=== PATIENT | male | born 1980 | race Caucasian/White ===

== ENCOUNTER 2020-05-29 12:42 | Emergency (ER) | payer MEDICAID ==
[~2020-05-29] VITALS: Ht 185.4 cm; Wt 89.8 kg
--- NOTE | 2020-05-29 12:44 | NUR ---
PT [address] C/O SI "I WANT TO CUT MY THROAT" PT IS AAOX4, NOT IN RESPIRATORY DISTRESS, V/S STABLE, KEPT RESTED AND COMFORTABLE. WILL CONTINUE TO MONITOR. SITTER AT BEDSIDE.
--- NOTE | 2020-05-29 12:48 | NUR ---
URINE SPECIMEN COLLECTED AND SENT TO LAB.
--- NOTE | 2020-05-29 12:51 | NUR ---
called security for wanding
--- NOTE | 2020-05-29 12:52 | NUR ---
security at bedside and wand the paitent
[2020-05-29 13:10] LABS: APPEARANCE,URINE CLEAR (CLEAR); BILIRUBIN,URINE NEGATIVE (NEGATIVE); BLOOD, URINE NEGATIVE Ery/uL (NEGATIVE); COLOR,URINE YELLOW (YELLOW); KETONES,URINE NEGATIVE (NEGATIVE); LEUKOCYTE ESTERASE ,URINE NEGATIVE (NEGATIVE); NITRITE, URINE NEGATIVE (NEGATIVE); PROTEIN,URINE NEGATIVE (NEGATIVE); UGLUCOSE NEGATIVE (NEGATIVE); UROBILINOGEN,URINE 0.2 EU/dL (0.2)
[2020-05-29 13:26] LABS: EOSINOPHILS % (AUTO) 1.4 % (0.0-6.0); HEMATOCRIT 41 % (39-51); HEMOGLOBIN 13.8 g/dL (13.5-17.5); LYMPHOCYTES # (AUTO) 0.9 /CMM (0.8-4.8); LYMPHOCYTES % (AUTO) 23.7 % (20.0-44.0); MEAN CORPUSCULAR HGB CONC 34 g/dl (31.0-36.0); MEAN CORPUSCULAR VOLUME 88 fL (80-96); MONOCYTES # (AUTO) 0.4 /CMM (0.1-1.30); MONOCYTES % (AUTO) 10.8 % (2.0-12.0); NEUTROPHILS # (AUTO) 2.3 /CMM (1.8-8.9); NEUTROPHILS % (AUTO) 63.1 % (43.0-81.0); PLATELET COUNT (AUTO) 198 /CMM (150-450); RED BLOOD CELL COUNT(AUTO) 4.65 MIL/uL (4.5-6.0); WHITE BLOOD COUNT (AUTO) 3.7 K/uL (4.3-11.0)
[2020-05-29 13:58] LABS: ALANINE AMINOTRANSFERASE 45 U/L (12-78); ALBUMIN 3.6 g/dL (3.4-5.0); ALKALINE PHOSPHATASE 56 U/L (46-116); ASPARTATE AMINOTRANSFERASE 36 U/L (15-37); BILIRUBIN,DIRECT 0.2 mg/dL (0.0-0.2); BILIRUBIN,TOTAL 0.5 mg/dL (0.2-1.0); CARBON DIOXIDE 29 mmol/L (21-32); CHLORIDE 102 mmol/L (98-107); CREATININE 1.1 mg/dL (0.6-1.3); GLUCOSE 71 mg/dL (74-106); POTASSIUM 3.2 mmol/L (3.5-5.1); SODIUM SERUM 140 mmol/L (136-145); TOTAL PROTEIN, SERUM 6.5 g/dL (6.4-8.2); UREA NITROGEN, BLOOD 7 mg/dL (7-18)
--- NOTE | 2020-05-29 14:10 | NUR ---
PATIENT IN BED ASLEEP, EASILY AROUSABLE BY VOICE, HOOKED TO MONITOR, WILL CONTINUE TO MONITOR ACCORDINGLY, SITTER AT BEDSIDE FOR SAFETY
[2020-05-29 14:21] LABS: ACETAMINOPHEN 0 ug/ml (10-30); ALCOHOL, BLOOD < 3 mg/dL (0-0); SALICYLATE 1.4 mg/dL (2.8-20.0)
--- NOTE | 2020-05-29 15:52 | NUR ---
GIULIA FROM [facility] IS ACCEPTED MD'S ARE CHARLES CALL REPORT [phone]. HOUSE KELSIE ARMANDO.
--- NOTE | 2020-05-29 15:59 | NUR ---
CALLED FOR TRANSPORT [facility] ETA 45 MINS PER GAMAL.
--- NOTE | 2020-05-29 16:44 | NUR ---
REPORT GIVEN TO SERGEI MANUEL FOR GAL.
--- NOTE | 2020-05-29 17:41 | NUR ---
[facility]
[2020-05-29 17:42] VITALS: BP 121/70
== END 2020-05-29 17:43 ==
LOC: ER 12:49
DX: R45.851 Suicidal ideations (principal); F19.10 Other psychoactive substance abuse, uncomplicated; G40.909 Epilepsy, unspecified, not intractable, without status epilepticus; F32.9 Major depressive disorder, single episode, unspecified; F41.9 Anxiety disorder, unspecified
CPT/HCPCS: 36415; 80048; 80076; 80305; 80307; 80329; 81001; 85025; 99285; G0480; 81000-TC

== ENCOUNTER 2020-06-29 13:15 | Emergency (ER) | payer MEDICAID ==
[~2020-06-29] VITALS: Ht 175.3 cm; Wt 79.4 kg
--- NOTE | 2020-06-29 13:15 | NUR ---
PT BIB SELF C/O SI "I WANT TO CUT MY THROAT USING A RAZOR" PT IS AAOX4, NOT IN RESPIRATORY DISTRESS, V/S STABLE, KEPT RESTED AND COMFORTABLE. SITTER AT BEDSIDE. WILL CONTINUE TO MONITOR.
--- NOTE | 2020-06-29 13:23 | NUR ---
called security for wanding
--- NOTE | 2020-06-29 13:24 | NUR ---
security at bedside for wanding
--- NOTE | 2020-06-29 13:27 | NUR ---
SEEN AND EXAMINED BY .
[2020-06-29 13:36] LABS: APPEARANCE,URINE Clear (CLEAR); BILIRUBIN,URINE MODERATE (NEGATIVE); BLOOD, URINE Trace-intact Ery/uL (NEGATIVE); COLOR,URINE Dark (YELLOW); KETONES,URINE Negative (NEGATIVE); LEUKOCYTE ESTERASE ,URINE Negative (NEGATIVE); NITRITE, URINE Negative (NEGATIVE); PH,URINE 5.5 (5.0-8.0); PROTEIN,URINE Negative (NEGATIVE); UGLUCOSE Negative (NEGATIVE)
[2020-06-29 13:39] LABS: BACTERIA,URINE Few /HPF (None Seen)
[2020-06-29 13:40] LABS: MUCUS,URINE Many /LPF (None Seen); SQUAMOUS EPITHELIAL CELL,UR Few /HPF (None Seen); URINE AMORPHOUS URATE Few /HPF (None Seen)
--- NOTE | 2020-06-29 13:40 | NUR ---
ER PHLEB AT BEDSIDE FOR BLOOD DRAW.
[2020-06-29 13:47] LABS: BASOPHILS % (AUTO) 0.9 % (0.0-2.0); EOSINOPHILS % (AUTO) 2.6 % (0.0-6.0); HEMATOCRIT 43 % (39-51); HEMOGLOBIN 14.7 g/dL (13.5-17.5); LYMPHOCYTES # (AUTO) 0.8 /CMM (0.8-4.8); LYMPHOCYTES % (AUTO) 21.7 % (20.0-44.0); MEAN CORPUSCULAR HGB CONC 34 g/dl (31.0-36.0); MEAN CORPUSCULAR VOLUME 88 fL (80-96); MONOCYTES # (AUTO) 0.4 /CMM (0.1-1.30); MONOCYTES % (AUTO) 9.8 % (2.0-12.0); NEUTROPHILS # (AUTO) 2.4 /CMM (1.8-8.9); PLATELET COUNT (AUTO) 236 /CMM (150-450); RED BLOOD CELL COUNT(AUTO) 4.87 MIL/uL (4.5-6.0); WHITE BLOOD COUNT (AUTO) 3.6 K/uL (4.3-11.0)
[2020-06-29 13:57] LABS: CARBON DIOXIDE 26 mmol/L (21-32); CHLORIDE 105 mmol/L (98-107); CREATININE 0.9 mg/dL (0.6-1.3); GLUCOSE 136 mg/dL (74-106); POTASSIUM 2.9 mmol/L (3.5-5.1); SODIUM SERUM 140 mmol/L (136-145); UREA NITROGEN, BLOOD 8 mg/dL (7-18)
[2020-06-29] MEDS ORDERED: POTASSIUM CHLORIDE 20 MEQ TAB.PRT.SR PO ONE ×2 (14:00→14:05)
[2020-06-29 14:09] LABS: ALANINE AMINOTRANSFERASE 20 U/L (12-78); ALKALINE PHOSPHATASE 76 U/L (46-116); ASPARTATE AMINOTRANSFERASE 19 U/L (15-37); BILIRUBIN,DIRECT 0.2 mg/dL (0.0-0.2)
[2020-06-29 14:10] LABS: ACETAMINOPHEN < 2 ug/ml (10-30); ALCOHOL, BLOOD < 3 mg/dL (0-0); SALICYLATE 1.1 mg/dL (2.8-20.0)
--- NOTE | 2020-06-29 16:28 | NUR ---
Loft Worker Apprentice met with the patient at bedside. Patient is a 40 year-old male. Patient presented to the ED from the streets stating "I want to cut my throat using a razor. Patient was alert and oriented x4 lying in bed with eyes closed. Patient had a low tone of voice and this SW had to redirect the patient to speak up to provide information. Patient confirmed demographics on the face sheet including date of and social security number. Patient reported his Father Ramirez as his primary personnel research scientist . Patient reports to be homeless. Patient did not want any resources given to him. Patient does not report alcohol, drug or cigarette use. Patient denies auditory and visual hallucinations. Patient reported that he would like to enter a voluntary psychiatric hospital per the suicidal ideations. This SW to fax clinicals over to [facility] . This SW to remain available for all needs regarding this patient.
--- NOTE | 2020-06-29 17:27 | NUR ---
ARRANGED S TRANSPORT WITH [facility] TO [facility], SPOKE TO ALEJANDRO, ETA:[phone].
--- NOTE | 2020-06-29 17:29 | NUR ---
PT ACCEPTED TO [facility] UNDER DR. KING, REPORT GIVEN TO GET.
--- NOTE | 2020-06-29 17:32 | NUR ---
report given to IAN MAI.
[2020-06-29 18:36] VITALS: BP 118/64
--- NOTE | 2020-06-29 18:37 | NUR ---
patient picked up by private ambulance going to [facility] in no distress.
== END 2020-06-29 18:37 ==
LOC: ER 13:15
DX: R45.851 Suicidal ideations (principal); F15.10 Other stimulant abuse, uncomplicated; G40.909 Epilepsy, unspecified, not intractable, without status epilepticus; F32.9 Major depressive disorder, single episode, unspecified; F41.9 Anxiety disorder, unspecified
CPT/HCPCS: 36415; 80048; 80076; 80305; 80307; 80329; 81001; 85025; 99285; G0480; 81000-TC

== ENCOUNTER 2020-07-14 18:29 | Emergency (ER) | payer MEDICAID ==
--- NOTE | 2020-07-14 19:14 | NUR ---
CALLED FOR TRIAGE, NO RESPONSE
--- NOTE | 2020-07-14 20:09 | NUR ---
CALLED PT TO TRIAGE ROOM. NO RESPONSE
--- NOTE | 2020-07-14 20:30 | NUR ---
CALLED FOR TRIAGE , NO ANSWER
--- NOTE | 2020-07-14 20:40 | NUR ---
LAST CALL TO BRING THE PT TO THE TRIAGE ROOM WITH NO RESPONSE.
== END 2020-07-14 20:40 | disposition left against medical advice (07) ==
LOC: ER 18:29
DX: Z53.21 Procedure and treatment not carried out due to patient leaving prior to being seen by health care provider (principal)

== ENCOUNTER 2023-06-20 11:02 | Emergency (ER) | payer MEDICAID, OTHER ==
[~2023-06-20] VITALS: Ht 182.9 cm; Wt 77.1 kg
[2023-06-20 11:28] VITALS: BP 144/92; TEMP 98.2
[2023-06-20] MEDS ORDERED: clonazePAM 1 MG TABLET PO ONE (12:00)
[2023-06-20] MEDS ORDERED: clonazePAM 1 MG TABLET ONE (12:00)
[2023-06-20] MEDS ORDERED: CLON1TAB12 PO (12:28)
[2023-06-20] MEDS ORDERED: PHEN15TA15 PO (12:28)
[2023-06-20 12:32] VITALS: O2SAT 100
== END 2023-06-20 12:33 | disposition home or self-care (01) ==
LOC: ER 11:12
DX: F41.9 Anxiety disorder, unspecified (principal); Z76.0 Encounter for issue of repeat prescription; F32.A Depression, unspecified; G40.909 Epilepsy, unspecified, not intractable, without status epilepticus; Z79.899 Other long term (current) drug therapy